=== PATIENT | female | born 1950 | race Caucasian/White ===

== ENCOUNTER 2016-09-26 08:55 | Inpatient (IN) | payer MEDICAID ==
--- NOTE | 2016-09-26 09:33 | ED PDOC ---
Arrival/HPI - History of Present Illness Activities at Onset: Rest Context: Home <Magdaleno Madrid - Last Filed: 09/26/16 09:30> - General Historian: Patient, Family (Translated by son) - History of Present Illness Time/Duration: 1 hour Symptom Onset: Gradual Symptom Course: Unchanged Activities at Onset: Rest Context: Home <Rachel Carroll - Last Filed: 09/26/16 09:45> - General Chief Complaint: Trauma Time Seen by Provider: 09/26/16 09:10 - History of Present Illness Narrative History of Present Illness (Text): 09/26/16 09:36 A 66 year old female, whose past medical history includes hypertension and diabetes mellitus, presents to the emergency department with son for translation , for left sided chest pain with palpitations and chest pressure, which began 1 hour ago. The patient reports at 05:30 am this morning while sleeping she fell off the bed and hit her head. The patient notes she had a mild headache and left shoulder pain due to fall. Currently, she has chest pain, palpations, and chest pressure. She denies any similar symptoms in the past along with fevers, shortness of breath, wheezing, abdominal pain, urinary difficulties, or any other symptoms at this time. Recently she has been tested with a nuclear stress test and echocardiogram preformed by Dr. Leos. 09/26/16 09:42 (Rachel Carroll) Past Medical History - Cardiac Hx Angina: (chest pain) - Pulmonary Hx Asthma: (SOB) - Neurological Hx Neurological Disorder: No - HEENT Hx HEENT Disorder: No - Renal Hx Renal Disorder: No - Endocrine/Metabolic Hx Endocrine Disorders: Yes Hx Diabetes Mellitus Type 2: Yes - Hematological/Oncological Hx Blood Disorders: No - Integumentary Hx Dermatological Disorder: No Hx Basal Cell Carcinoma: No - Musculoskeletal/Rheumatological Hx Musculoskeletal Disorders: No - Gastrointestinal Hx Gastrointestinal Disorders: No - Genitourinary/Gynecological Hx Genitourinary Disorders: No - Psychiatric Hx Psychophysiologic Disorder: Yes Hx Depression: Yes Hx Substance Use: No - Surgical History Hx Appendectomy: Yes Hx Section: Yes Hx Cholecystectomy: Yes - Anesthesia Hx Anesthesia: Yes Hx Anesthesia Reactions: No Hx Malignant Hyperthermia: No <Magdaleno Madrid - Last Filed: 09/26/16 09:30> - Provider Review Nursing Documentation Reviewed: Yes <Rachel Carroll P - Last Filed: 09/26/16 09:45> Family/Social History Smoking Status: Never Smoked Hx Alcohol Use: No Hx Substance Use: No <Magdaleno Madrid - Last Filed: 09/26/16 09:30> - Physician Review Nursing Documentation Reviewed: Yes Family/Social History: No Known Family HX, Unknown Family HX <Rachel Carroll P - Last Filed: 09/26/16 09:45> Allergies/Home Meds <Magdaleno Madrid - Last Filed: 09/26/16 09:30> <Rachel Carroll P - Last Filed: 09/26/16 09:45> Allergies/Adverse Reactions: Allergies No Known Allergies Allergy (Verified 09/26/16 09:03) Home Medications: Home Meds Medication Instructions Recorded Confirmed Alogliptin Lasha/Metformin HCl 1 each PO DAILY 08/23/16 09/26/16 [Alogliptin-Metformin 12.5-500] Aspirin [Aspirin Chewable] 81 mg PO DAILY 08/23/16 09/26/16 Atenolol [Tenormin] 25 mg PO DAILY 08/23/16 09/26/16 Enalapril Maleate [Vasotec] 1 tab PO DAILY 08/23/16 09/26/16 Gabapentin [Neurontin] 600 mg PO TID 08/23/16 09/26/16 GlipiZIDE [Glucotrol] 5 mg PO DAILY 09/26/16 09/26/16 Review of Systems - Physician Review All systems were reviewed & negative as marked: Yes - Review of Systems Constitutional: absent: Fevers Respiratory: absent: SOB, Wheezing Cardiovascular: Chest Pain, Palpitations Gastrointestinal: absent: Abdominal Pain Genitourinary Female: Normal. absent: Dysuria, Frequency, Hematuria, Urine Output Changes Musculoskeletal: Other (Left arm pain ) Neurological: Headache (mild ) <Rachel Carroll - Last Filed: 09/26/16 09:45> Physical Exam Vital Signs Reviewed: Yes Temperature: Afebrile Blood Pressure: Normal Pulse: Regular Respiratory Rate: Normal Appearance: Positive for: Well-Appearing, Non-Toxic, Comfortable Pain Distress: None Mental Status: Positive for: Alert and Oriented X 3 - Systems Exam Head: Present: Atraumatic, Normocephalic Pupils: Present: PERRL Mouth: Present: Moist Mucous Membranes Neck: Present: Normal Range of Motion Respiratory/Chest: Present: Clear to Auscultation, Good Air Exchange, Tender to Palpation (Left anterior chest is reproducible upon palpation ). No: Respiratory Distress, Accessory Muscle Use, Wheezes Cardiovascular: Present: Regular Rate and Rhythm, Normal S1, S2. No: Murmurs Abdomen: Present: Normal Bowel Sounds. No: Tenderness, Distention, Peritoneal Signs Back: Present: Normal Inspection Upper Extremity: Present: Normal Inspection. No: Cyanosis, Edema Lower Extremity: Present: Normal Inspection. No: Edema Neurological: Present: GCS=15, Speech Normal Skin: Present: Warm, Dry, Normal Color. No: Rashes Psychiatric: Present: Alert, Oriented x 3, Normal Insight, Normal Concentration <Rachel Carroll - Last Filed: 09/26/16 09:45> Vital Signs Temp Pulse Resp BP Pulse Ox 09/26/16 08:58 97.7 F 78 20 127/72 96 <Magdaleno Madrid - Last Filed: 09/26/16 09:30> - PA / SUPERVISOR STATEMENT CLERKS / Resident Statement MD/DO has reviewed & agrees with the documentation as recorded. - Scribe Statement The provider has reviewed the documentation as recorded by the Scribe <Rachel Carroll - Last Filed: 09/26/16 09:45> - Scribe Statement Asuncion Dorman Provider Scribe Attestation: All medical record entries made by the Scribe were at my direction and personally dictated by me. I have reviewed the chart and agree that the record accurately reflects my personal performance of the history, physical exam, medical decision making, and the department course for this patient. I have also personally directed, reviewed, and agree with the discharge instructions and disposition. (Rachel Carroll) Disposition/Present on Arrival - Present on Arrival History of DVT/PE: No History of Uncontrolled Diabetes: No Urinary Catheter: No History of Decub. Ulcer: No History Surgical Site Infection Following: None <Magdaleno Madrid - Last Filed: 09/26/16 09:30> <Rachel Carroll - Last Filed: 09/26/16 09:45> - Disposition Forms: [employer] (Armenian)
--- NOTE | 2016-09-26 09:51 | ED PDOC ---
Arrival/HPI - General Historian: Patient, Family (Translated by son) - History of Present Illness Time/Duration: 1 hour Symptom Onset: Gradual Symptom Course: Unchanged Activities at Onset: Rest Context: Home - General Chief Complaint: Trauma Time Seen by Provider: 09/26/16 09:10 - History of Present Illness Narrative History of Present Illness (Text): 09/26/16 09:36 A 66 year old female, whose past medical history includes hypertension and diabetes mellitus, presents to the emergency department with son for translation , for left sided chest pain with palpitations and chest pressure, which began 1 hour ago. The patient reports at 05:30 am this morning while sleeping she fell off the bed and hit her head. The patient notes she had a mild headache and left shoulder pain due to fall. Currently, she has chest pain, palpitations, and chest pressure. She denies any similar symptoms in the past along with fevers, shortness of breath, wheezing, abdominal pain, urinary difficulties, or any other symptoms at this time. Recently she has been tested with a nuclear stress test and echocardiogram preformed by Dr. Sanchez last month. PATIENT STATED SHE TOOK A "BABY ASA, 81MG" THIS MORNING (Carroll,Nahim P) Past Medical History - Provider Review Nursing Documentation Reviewed: Yes - Cardiac Hx Angina: (chest pain) - Pulmonary Hx Asthma: (SOB) - Neurological Hx Neurological Disorder: No - HEENT Hx HEENT Disorder: No - Renal Hx Renal Disorder: No - Endocrine/Metabolic Hx Endocrine Disorders: Yes Hx Diabetes Mellitus Type 2: Yes - Hematological/Oncological Hx Blood Disorders: No - Integumentary Hx Dermatological Disorder: No Hx Basal Cell Carcinoma: No - Musculoskeletal/Rheumatological Hx Musculoskeletal Disorders: No - Gastrointestinal Hx Gastrointestinal Disorders: No - Genitourinary/Gynecological Hx Genitourinary Disorders: No - Psychiatric Hx Psychophysiologic Disorder: Yes Hx Depression: Yes Hx Substance Use: No - Surgical History Hx Appendectomy: Yes Hx Section: Yes Hx Cholecystectomy: Yes - Anesthesia Hx Anesthesia: Yes Hx Anesthesia Reactions: No Hx Malignant Hyperthermia: No Family/Social History - Physician Review Nursing Documentation Reviewed: Yes Family/Social History: No Known Family HX, Unknown Family HX Smoking Status: Never Smoked Hx Alcohol Use: No Hx Substance Use: No Allergies/Home Meds Allergies/Adverse Reactions: Allergies No Known Allergies Allergy (Verified 09/26/16 09:03) Home Medications: Home Meds Medication Instructions Recorded Confirmed Alogliptin Lasha/Metformin HCl 1 each PO DAILY 08/23/16 09/27/16 [Alogliptin-Metformin 12.5-500] Aspirin [Aspirin Chewable] 81 mg PO DAILY 08/23/16 09/27/16 Enalapril Maleate [Vasotec] 1 tab PO DAILY 08/23/16 09/27/16 Gabapentin [Neurontin] 600 mg PO TID 08/23/16 09/27/16 GlipiZIDE [Glucotrol] 5 mg PO DAILY 09/26/16 09/27/16 Review of Systems - Physician Review All systems were reviewed & negative as marked: Yes - Review of Systems Constitutional: absent: Fevers Respiratory: absent: SOB, Wheezing Cardiovascular: Chest Pain, Palpitations Gastrointestinal: absent: Abdominal Pain Genitourinary Female: Normal. absent: Dysuria, Frequency, Hematuria, Urine Output Changes Neurological: Headache (mild) Physical Exam Vital Signs Reviewed: Yes Temperature: Afebrile Blood Pressure: Normal Pulse: Regular Respiratory Rate: Normal Appearance: Positive for: Well-Appearing, Non-Toxic, Comfortable Pain Distress: None Mental Status: Positive for: Alert and Oriented X 3 - Systems Exam Head: Present: Atraumatic, Normocephalic Pupils: Present: PERRL Mouth: Present: Moist Mucous Membranes Neck: Present: Normal Range of Motion Respiratory/Chest: Present: Clear to Auscultation, Good Air Exchange, Tender to Palpation (Left antieror chest pain is reproducible on palpation ). No: Respiratory Distress, Accessory Muscle Use Cardiovascular: Present: Regular Rate and Rhythm, Normal S1, S2. No: Murmurs Abdomen: Present: Normal Bowel Sounds. No: Tenderness, Distention, Peritoneal Signs Upper Extremity: Present: Normal Inspection. No: Cyanosis, Edema Lower Extremity: Present: Normal Inspection. No: Edema Neurological: Present: GCS=15, Speech Normal Skin: Present: Warm, Dry, Normal Color. No: Rashes Psychiatric: Present: Alert, Oriented x 3, Normal Insight, Normal Concentration Vital Signs Temp Pulse Resp BP Pulse Ox 09/26/16 11:44 113 H 17 118/57 L 97 09/26/16 11:03 97 H 18 121/75 97 09/26/16 10:53 108 H 17 123/80 97 09/26/16 08:58 97.7 F 78 20 127/72 96 Medical Decision Making Reassessment Condition: Re-examined, Improving,but remains with symptoms - EKG Interpretation Interpreted by ED Physician: Yes (A-Fib @[address] changes. Reviewed with Dr. Patel) Type: 12 lead EKG Comparison: No previous EKG avail. ED Course and Treatment: 09/26/16 10:17 I was available for consultation during PA evaluation. The chart was reviewed by me, and I agree with disposition. The documented history was done by the physician aquatic life laborer. The documented physical exam was done by the physician aquatic life laborer. The documented procedures were done by the physician aquatic life laborer. (Magdaleno Madrid) 09/26/16 09:36 Impression: A 66 year old female with chest pain. Differential Diagnosis included but are not limited to: Plan: -- Head CT -- EKG -- Chest X-Ray -- Labs -- Urinalysis -- Reassess and disposition Prior Visits: Notes and results from previous visits were reviewed. The patient was last seen on 03/04/15 for lower back pain and was discharged home. Progress Notes: 09/26/16 09:53 Dr. Rodriguez Hospitalist agrees with plan for admission Chest X-Ray Slot Host : Donny Nickerson MD Report Date : 09/26/2016 11:16:39 HISTORY: CP COMPARISON:No prior. FINDINGS: OTHER FINDINGS: None. IMPRESSION: Mild vascular congestion. NEW ONSET A-FIB (Carroll,Nahim P) - Lab Interpretations Lab Results: 09/26/16 09:58 09/26/16 09:58 Lab Results 09/26/16 10:09: Urine Color Straw, Urine Appearance Clear, Urine pH 6.5, Ur Specific [place] <= 1.005, Urine Protein Negative, Urine Glucose (UA) Negative, Urine Ketones Negative, Urine Blood Negative, Urine Nitrate Negative, Urine Bilirubin Negative, Urine Urobilinogen 0.2, Ur Leukocyte Esterase Negative 09/26/16 09:58: Sodium 141, Potassium 3.9, Chloride 104, Carbon Dioxide 27, Anion Gap 14, BUN 15, Creatinine 0.6, Est GFR ( Amer) > 60, Est GFR (Non- Af Amer) > 60, Random Glucose 158 H, Calcium 8.9, Magnesium 1.7, Total Bilirubin 0.5, AST 40 H, ALT 51, Alkaline Phosphatase 57, Lactate Dehydrogenase 461, Total Creatine Kinase 86, Troponin I < 0.01, NT-Pro-B Natriuret Pep 172, Total Protein 7.5, Albumin 3.8, Globulin 3.7, Albumin/Globulin Ratio 1.0 L 09/26/16 09:58: D-Dimer, Quantitative 0.47 09/26/16 09:58: WBC 8.1, RBC 4.66, Hgb 13.0, Hct 39.3, MCV 84.3, MCH 27.9, MCHC 33.1, RDW 14.3, Plt Count 226, MPV 10.9, Gran % 50.5, Lymph % (Auto) 38.7 H, [place] % (Auto) 9.1 H, Eos % (Auto) 1.5, Baso % (Auto) 0.2, Gran # 4.07, Lymph # 3.1, [place] # 0.7 H, Eos # 0.1, Baso # 0.02 - RAD Interpretation Narrative RAD Interpretations (Text): 09/26/16 10:39 Accession No. : [id number] Patient Name / ID : RANCHO VAUGHN NOLA / [id number] Exam Date : 09/26/2016 10:06:38 ( Approved ) Study Comment : Sex / Age : F / 66Y Creator : Donny Nickerson MD Dictator : Donny Nickerson MD Body Care Manager : Slot Host : Donny Nickerson MD Approver2 : Report Date : 09/26/2016 10:38:51 My Comment : This report is currently processing and HAS NOT BEEN OFFICIALLY SIGNED BY THE PHYSICIAN - ESTIMATED TIME OF APPROVAL IS 09/26/2016 10:43. PROCEDURE: CT HEAD WITHOUT CONTRAST. HISTORY: ZAMUDIO s/p head trauma COMPARISON: None available. TECHNIQUE: Axial computed tomography images were obtained through the head/brain without intravenous contrast. Radiation dose: Total exam DLP = 677 mGy-cm. This CT exam was performed using one or more of the following dose reduction techniques: Automated exposure control, adjustment of the mA and/or kV according to patient size, and/or use of iterative reconstruction technique. FINDINGS: HEMORRHAGE: No intracranial hemorrhage. BRAIN: No mass effect or edema. No atrophy or chronic microvascular ischemic changes. VENTRICLES: Unremarkable. No hydrocephalus. CALVARIUM: Unremarkable. PARANASAL SINUSES: Unremarkable as visualized. No significant inflammatory changes. MASTOID AIR CELLS: Unremarkable as visualized. No inflammatory changes. OTHER FINDINGS: None. IMPRESSION: No acute intracranial findings (Rachel Carroll) Radiology Orders: 09/26/16 09:34 HEAD W/O CONTRAST [CT] Stat CHEST PORTABLE [RAD] Stat - Medication Orders Current Medication Orders: Discontinued Medications Aspirin (Aspirin Chewable) 81 mg PO DAILY [facility] Last Admin: 09/27/16 09:51 Dose: Aspirin (Aspirin) 325 mg PO DAILY STA Stop: 09/27/16 09:13 Last Admin: 09/27/16 09:50 Dose: 325 mg Atenolol (Tenormin) 25 mg PO DAILY BRUNILDA Atenolol (Tenormin) 50 mg PO DAILY [facility] Last Admin: 09/27/16 09:50 Dose: 50 mg Atropine Sulfate (Atropine) Confirm Administered Dose 1 mg .ROUTE .STK-MED ONE Stop: 09/27/16 12:16 Last Admin: 09/27/16 15:40 Dose: Bacitracin (Bacitracin) 1 ea TOP ONCE ONE Stop: 09/27/16 13:26 Last Admin: 09/27/16 15:46 Dose: 1 ea Clopidogrel Bisulfate (Plavix) 300 mg PO STAT STA Stop: 09/27/16 09:13 Last Admin: 09/27/16 09:51 Dose: 300 mg Diltiazem HCl (Cardizem) 5 mg IVP ONCE ONE Stop: 09/26/16 12:51 Last Admin: 09/26/16 13:32 Dose: 5 mg Enoxaparin Sodium (Lovenox) 105 mg SC STAT STA PRN Reason: Protocol Stop: 09/26/16 11:18 Last Admin: 09/26/16 11:29 Dose: 105 mg Fentanyl (Fentanyl) Confirm Administered Dose 100 mcg .ROUTE .STK-MED ONE Stop: 09/27/16 12:23 Last Admin: 09/27/16 12:44 Dose: 100 mcg Comments: 50mcgs iv by dr. teresa 50mcgs iv by esther matos RN at 1251 Gabapentin (Neurontin) 600 mg PO TID [facility] PRN Reason: Protocol Last Admin: 09/27/16 18:12 Dose: 600 mg Glipizide (Glucotrol) 5 mg PO DAILY [facility] Last Admin: 09/27/16 09:51 Dose: Not Given Non-Admin Reason: NPO Heparin Sodium (Porcine) (Heparin) Confirm Administered Dose 10,000 units .ROUTE .STK-MED ONE Stop: 09/27/16 12:14 Last Admin: 09/27/16 12:49 Dose: 2,500 units Comments: ia by dr teresa Heparin Sodium (Porcine) (Heparin 1000 Units/500 Ml Ns) Confirm Administered Dose 1,500 mls @ ud IV .STK-MED ONE Stop: 09/27/16 12:12 Nitroglycerin/Dextrose (Nitroglycerin 50 Mg/250 Ml D5w) Confirm Administered Dose 50 mg in 250 mls @ ud IV .STK-MED ONE Stop: 09/27/16 12:14 Last Admin: 09/27/16 12:49 Dose: 0.2 mg Comments: 200mcgs given ia by dr teresa Sodium Chloride (Sodium Chloride 0.9%) 1,000 mls @ 100 mls/hr IV .Q10H [facility] Stop: 09/27/16 17:00 Last Admin: 09/27/16 14:10 Dose: 100 mls/hr Ibuprofen (Motrin Tab) 600 mg PO Q6H PRN PRN Reason: Pain, Mild (1-3) Last Admin: 09/27/16 15:58 Dose: 600 mg Re-Assess: MAR Pain/Vitals Document 09/27/16 16:58 RT (Rec: 09/27/16 18:08 RT [id number]) Pain Reassessment Is This A Pain ReAssessment? Yes Presence of Pain Presence of Pain No Insulin Human Lispro (Humalog Med) 0 units SC ACHS [facility] PRN Reason: Protocol Last Admin: 09/27/16 16:50 Dose: 3 units Iohexol (Omnipaque 350mg/Ml 50 Ml) Confirm Administered Dose 50 ml .ROUTE .STK- MED ONE Stop: 09/27/16 12:15 Iohexol (Omnipaque 350 100 Ml) Confirm Administered Dose 350 mg .ROUTE .STK-MED ONE Stop: 09/27/16 12:15 Iohexol (Omnipaque 350 150 Ml) Confirm Administered Dose 150 ml .ROUTE .STK-MED ONE Stop: 09/27/16 12:15 Lidocaine HCl (Lidocaine 2% 20ml Vial) Confirm Administered Dose 20 ml .ROUTE .STK-MED ONE Stop: 09/27/16 12:12 Last Admin: 09/27/16 12:48 Dose: 3 ml Lisinopril (Zestril) 10 mg PO DAILY [facility] Last Admin: 09/27/16 09:49 Dose: 10 mg Midazolam HCl (Versed Inj) Confirm Administered Dose 2 mg .ROUTE .STK-MED ONE Stop: 09/27/16 12:22 Last Admin: 09/27/16 12:44 Dose: 2 mg Comments: 1mg given by dr teresa 1244pm 1mg given by 1251pm by esther Matos RN. Pantoprazole Sodium (Protonix Ec Tab) 40 mg PO 0600 [facility] Last Admin: 09/27/16 04:59 Dose: 40 mg Verapamil HCl (Verapamil Inj) Confirm Administered Dose 5 mg IVP .STK-MED ONE Stop: 09/27/16 12:14 Last Admin: 09/27/16 12:49 Dose: 2.5 mg Comments: ia by dr teresa. - Scribe Statement The provider has reviewed the documentation as recorded by the Scribe - Scribe Statement Asuncion Dorman Provider Scribe Attestation: All medical record entries made by the Scribe were at my direction and personally dictated by me. I have reviewed the chart and agree that the record accurately reflects my personal performance of the history, physical exam, medical decision making, and the department course for this patient. I have also personally directed, reviewed, and agree with the discharge instructions and disposition. (Rachel Carroll) Disposition/Present on Arrival - Present on Arrival Any Indicators Present on Arrival: No History of DVT/PE: No History of Uncontrolled Diabetes: No Urinary Catheter: No History of Decub. Ulcer: No History Surgical Site Infection Following: None - Disposition Have Diagnosis and Disposition been Completed?: Yes Disposition Time: 11:16 Patient Plan: Admission - Disposition Diagnosis: New onset atrial fibrillation Disposition: HOSPITALIZED Condition: STABLE
[2016-09-26 10:02] LABS: BASO # 0.02 K/mm3 (0.0-2.0); BASO % 0.2 % (0.0-3.0); EOS # 0.1 (0.0-0.7); EOS % 1.5 % (1.5-5.0); GRAN # 4.07 (1.4-6.5); GRAN % 50.5 % (50.0-68.0); LYMPH # 3.1 (1.2-3.4); LYMPH % 38.7 % (22.0-35.0); MEAN CELL VOLUME 84.3 fL (80.0-105.0); MEAN CORPUSCULAR HEMOGLOBIN 27.9 pg (25.0-35.0); MEAN CORPUSCULAR HGB CONC 33.1 g/dl (31.0-37.0); MEAN PLATELET VOLUME 10.9 fl (7.0-11.0); MONO # 0.7 (0.1-0.6); MONO % 9.1 % (1.0-6.0); PLATELET COUNT 226 10^3/uL (120.0-450.0); RBC 4.66 10^6/uL (3.5-6.1); RED CELL DISTRIBUTION WIDTH 14.3 % (11.5-14.5); WHITE BLOOD COUNT 8.1 10^3/ul (4.5-11.0)
[2016-09-26 10:13] LABS: ALBUMIN 3.8 g/dL (3.0-4.8); ALT/SGPT 51 U/L (7-56); AST/SGOT 40 U/L (15-39); BLOOD UREA NITROGEN 15 mg/dL (7-21); CALCIUM 8.9 mg/dL (8.4-10.5); GFR AFRICAN-AMERICAN > 60; GFR NON-AFRICAN AMERICAN > 60; MAGNESIUM 1.7 mg/dL (1.7-2.2)
[2016-09-26 10:17] LABS: PH,URINE 6.5 (4.7-8.0); URINE BILIRUBIN NEGATIVE (NEGATIVE); URINE BLOOD NEGATIVE (NEGATIVE); URINE GLUCOSE (UA) NEGATIVE (NEGATIVE); URINE LEUKOCYTE ESTERASE NEGATIVE Leu/uL (NEGATIVE); URINE NITRATE NEGATIVE (NEGATIVE); URINE PROTEIN NEGATIVE mg/dL (<30 mg/dL); URINE UROBILINOGEN 0.2 E.U./dL (<1 E.U./dL)
[2016-09-26 10:21] LABS: URINE APPEARANCE CLEAR (CLEAR); URINE COLOR STRAW (YELLOW)
[2016-09-26 10:25] LABS: B-TYPE NATRIURETIC PEPTIDE 172 pg/mL (0-450); TROPONIN I < 0.01 ng/mL
--- NOTE | 2016-09-26 10:40 | CT ---
PROCEDURE: CT HEAD WITHOUT CONTRAST. HISTORY: ZAMUDIO s/p head trauma COMPARISON: None available. TECHNIQUE: Axial computed tomography images were obtained through the head/brain without intravenous contrast. Radiation dose: Total exam DLP = 677 mGy-cm. This CT exam was performed using one or more of the following dose reduction techniques: Automated exposure control, adjustment of the mA and/or kV according to patient size, and/or use of iterative reconstruction technique. FINDINGS: HEMORRHAGE: No intracranial hemorrhage. BRAIN: No mass effect or edema. No atrophy or chronic microvascular ischemic changes. VENTRICLES: Unremarkable. No hydrocephalus. CALVARIUM: Unremarkable. PARANASAL SINUSES: Unremarkable as visualized. No significant inflammatory changes. MASTOID AIR CELLS: Unremarkable as visualized. No inflammatory changes. OTHER FINDINGS: None. IMPRESSION: No acute intracranial findings
[2016-09-26] MEDS ORDERED: Enoxaparin 120 mg Syringe SC STA (11:17)
--- NOTE | 2016-09-26 11:18 | RAD ---
HISTORY: CP COMPARISON: No prior. FINDINGS: LUNGS: No active pulmonary disease. PLEURA: No significant pleural effusion identified, no pneumothorax apparent. CARDIOVASCULAR: Mild cardiomegaly. Mild vascular congestion OSSEOUS STRUCTURES: No significant abnormalities. VISUALIZED UPPER ABDOMEN: Normal. OTHER FINDINGS: None. IMPRESSION: Mild vascular congestion.
[2016-09-26 11:24] VITALS: BMI 45.5
--- NOTE | 2016-09-26 12:13 | CP.PCM.HP ---
<Stormy Smith - Last Filed: 09/26/16 13:29> History of Present Illness - History of Present Illness History of Present Illness: 66 yo female with pmhx of Diabetes, HTN, GERD presents to the ED s/p fall. Patient reports that she was sleeping in the bed when she rolled over and hit her head on the night stand. Denies any LOC. Had a similar episode happen last year but did not hit her head. Patient reports that an hour after the fall she began to have substernal pressure-like chest pain. Pain radiated to the back and was associated with palpitations. Worse with breathing. At this time patient denies pain but reports that the chest pressure is intermittent and is less severe currently. Denies any headache, dizziness, visual changes, hearing changes, chest pain, palpitations, sob, abdominal pain, urinary symptoms, changes in bowel habits. PMD: [employer] Attendant: Laura Allergies: NKDA Medications: Montelukast, Gabapentin 600 TID, Vitamin B12, Vitamin D, Loratadine 10mg daily, Glipizide 5mg BID, Enalapril 10mg QD, Protonix 40mg daily , Atenolol 50mg, Januvia 12.5/500mg BID Medical Hx: Diabetes, HTN, peripheral neuropathy, GERD Surgical Hx: Appendectomy, Cholecystectomy, C/S x 2 Social Hx: Denies alcohol, tobacco, drug use; 3 years ago Family Hx: Brother of [place] at age 35 Present on Admission - Present on Admission Any Indicators Present on Admission: No History of DVT/PE: No History of Uncontrolled Diabetes: No Urinary Catheter: No Decubitus Ulcer Present: No Review of Systems - Constitutional Constitutional: absent: Chills, Fatigue, Fever, Headache - EENT Eyes: absent: Blurred Vision Ears: absent: Decreased Hearing - Cardiovascular Cardiovascular: Chest Pain, Irregular Heart Rhythm, Palpitations. absent: Diaphoresis, Dyspnea, Edema, Lightheadedness, Syncope - Respiratory Respiratory: absent: Cough, Dyspnea, Wheezing - Gastrointestinal Gastrointestinal: absent: Abdominal Pain, Bloating, Constipation, Diarrhea, Nausea, Vomiting - Genitourinary Genitourinary: absent: Dysuria, Urinary Frequency - Musculoskeletal Musculoskeletal: absent: Abnormal Gait, Back Pain, Numbness, Tingling - Neurological Neurological: absent: Confusion, Dizziness, Frequent Falls, Headaches, Loss of Vision, Syncope, Tingling, Weakness - Psychiatric Psychiatric: absent: Anxiety, Behavioral Changes, Change in Appetite, Confusion , Depression Past Patient History - Infectious Disease Hx of Infectious Diseases: None - Tetanus Immunizations Tetanus Immunization: Unknown - Past Medical History & Family History Past Medical History?: Yes - Past Social History Smoking Status: Never Smoked Alcohol: None Drugs: Denies - CARDIAC Hx Angina: (chest pain) - PULMONARY Hx Asthma: (SOB) - NEUROLOGICAL Hx Neurological Disorder: No - HEENT Hx HEENT Problems: No - RENAL Hx Chronic Kidney Disease: No - ENDOCRINE/METABOLIC Hx Endocrine Disorders: Yes Hx Diabetes Mellitus Type 2: Yes - HEMATOLOGICAL/ONCOLOGICAL Hx Blood Disorders: No - INTEGUMENTARY Hx Dermatological Problems: No Hx Basil Cell: No - MUSCULOSKELETAL/RHEUMATOLOGICAL Hx Musculoskeletal Disorders: No - GASTROINTESTINAL Hx Gastrointestinal Disorders: No - GENITOURINARY/GYNECOLOGICAL Hx Genitourinary Disorders: No - PSYCHIATRIC Hx Psychophysiologic Disorder: Yes Hx Depression: Yes Hx Substance Use: No - SURGICAL HISTORY Hx Appendectomy: Yes Hx Section: Yes Hx Cholecystectomy: Yes - ANESTHESIA Hx Anesthesia: Yes Hx Anesthesia Reactions: No Hx Malignant Hyperthermia: No Meds Allergies/Adverse Reactions: Allergies Allergy/AdvReac Type Severity Reaction Status Date / Time No Known Allergies Allergy Verified 09/26/16 09:03 Physical Exam - Constitutional Appears: Well, No Acute Distress - Head Exam Head Exam: ATRAUMATIC, NORMAL INSPECTION Additional comments: Small bruise noted on L side of forehead - Eye Exam Eye Exam: EOMI, Normal appearance Pupil Exam: NORMAL ACCOMODATION - ENT Exam ENT Exam: Mucous Membranes Moist - Neck Exam Neck exam: Positive for: Normal Inspection - Respiratory Exam Respiratory Exam: Clear to Auscultation Bilateral, NORMAL BREATHING PATTERN. absent: Rales, Rhonchi, Wheezes - Cardiovascular Exam Cardiovascular Exam: Irregular Rhythm - GI/Abdominal Exam GI & Abdominal Exam: Normal Bowel Sounds, Soft. absent: Guarding, Rebound, Rigid - Extremities Exam Extremities exam: Positive for: normal inspection, pedal pulses present. Negative for: calf tenderness, pedal edema - Back Exam Back exam: NORMAL INSPECTION - Neurological Exam Neurological exam: Alert, CN II-XII Intact, Oriented x3 - Psychiatric Exam Psychiatric exam: Normal Affect, Normal Mood - Skin Skin Exam: Dry, Normal Color, Warm Results - Vital Signs Recent Vital Signs: Last Vital Signs Temp 97.7 F 09/26/16 08:58 Pulse 113 H 09/26/16 11:44 Resp 17 09/26/16 11:44 BP 118/57 L 09/26/16 11:44 Pulse Ox 97 09/26/16 11:44 - Labs Result Diagrams: 09/26/16 09:58 09/26/16 09:58 Assessment & Plan - Assessment and Plan (Free Text) Assessment: 66 F with past medical hx of HTN, DM, peripheral neuropathy, GERD presents s/p fall with chest pain Plan: 1. New onset A fib -Admit, observation, telemetry -EKG in ED Afib with rate of 118 -Recieved one dose of weight based Lovenox in ED -Will order Cardizem 5mg IV STAT, goal HR 80-90s -Trop neg x 1, continue to trend troponins -EKG in am -Echo ordered -Cardiology on consult, f/u recommendations -Continue ASA 81 daily -[id number] score: 3 HASBLED score: 1 -Continue Lovenox 100mg Q12H -Continue Atenolol 25mg daily -F/U am labs 2. S/P Mechanical Fall -CT head: no acute findings 3. HTN -Continue Atenolol 25mg daily -Continue Enapril 10mg daily -Monitor BPs 4. Diabetes Mellitus, Type 2 -Will hold metoformin at this time -Contine Glipizide -Medium dose ISS and accuchecks ACHS -F/U hgA1c -Continue Gabapentin 600mg TID for peripheral neuropathy 5. PPx -Protonix 40mg PO daily -Lovenox 100mg Q12H Stormy Smith, PGY -1 <Macho Rodriguez - Last Filed: 09/26/16 17:55> Results - Vital Signs Recent Vital Signs: Last Vital Signs Temp 98.0 F 09/26/16 16:18 Pulse 120 H 09/26/16 16:18 Resp 19 09/26/16 16:18 BP 140/80 09/26/16 16:18 Pulse Ox 99 09/26/16 12:00 - Labs Result Diagrams: 09/26/16 09:58 09/26/16 09:58 Labs: Laboratory Results - last 24 hr 08/06/17 08/06/17 08/06/17 12:26 15:50 16:15 POC Glucose (mg/dL) 160 H 189 H Troponin I < 0.01 Attending/Attestation - Attestation I have personally seen and examined this patient.: Yes I have fully participated in the care of the patient.: Yes I have reviewed all pertinent clinical information: Yes Notes (Text): 09/26/16 17:51 attending note; Patient seen and examined with resident. Patient's son by the bedside. Patient is alert, awake and oriented. Denies any complaints. Patient is a 66 year old female with the PMH of Diabetes, HTN, GERD presents to the ED s/p fall. Patient reports that she was sleeping in the bed when she rolled over and hit her head on the night stand. CT head is negative. The patient started to have chest pain and palpitations. ER EKG showed irregular rhythm. Given sc lovenox in ER. atenolol dosage increased. Continue to monitor in telemetry. Cardiac enzymes 3 ordered. Echocardiogram ordered. Cardiology evaluation requested. cardiology to advice about the need for long- term anticoagulation. diabetes and hypertension; continue home medications. upon discharge the patient will follow-up with PMD Dr. Ortega and cardiology Dr. Sanchez. 09/26/16 17:54
[2016-09-26] MEDS ORDERED: ENALAPRIL MALEATE PO SCH (13:00)
[2016-09-26] MEDS: Insulin Lispro (humaLOG) MEDIUM Coverage SC SCH (17:02)
--- NOTE | 2016-09-26 22:04 | CON ---
REASON FOR CONSULTATION: Presumably atrial fibrillation. HISTORY OF PRESENT ILLNESS: The patient is 66 years old [place] female with history of hypertension and diabetes mellitus. The patient underwent Lexiscan on 04/27/2016, which was reported to be essentially negative except for breast attenuation and the patient was admitted because of fall while asleep. The patient stated that she fell from bed while she was asleep, which was not the first time it has happened to her. She sustained right eyebrow bruise. The patient wake up immediately after she sustained the fall. She did experienced headache. EKG was read as atrial fibrillation; however, my own interpretation was sinus rhythm with frequent apices or possibly chaotic atrial risk. The patient does not currently experiencing palpitations. SOCIAL HISTORY: The patient is nonsmoker and nondrinker. MEDICATIONS: The patient is on aspirin 81 mg once a day, glipizide 5 mg once a day, Neurontin 600 mg t.i.d., atenolol 25 mg daily. REVIEW OF SYSTEMS: No fever or chills. No vomiting or diarrhea. PHYSICAL EXAMINATION GENERAL: The patient is a middle aged female who does not appear to be in any distress. VITAL SIGNS: Blood pressure 118/57, heart rate 115, temperature 97.7 and respirations 17. HEENT: Left upper eye bruising. NECK: No JVD. CHEST: Clear. HEART: S1 and S2 regular. EXTREMITIES: No edema or calf tenderness. LABORATORY DATA: Hemoglobin, hematocrit, white count and platelet count are within normal limits. SMA-7 is within normal limits except for glucose of 158. One set of troponin is negative. D-dimer was within normal limits. EKG revealed sinus arrhythmia with frequent apices, heart rate is 118. There is no prior EKG noted in the patient's previous admission. ASSESSMENT: 1. Status post fall. 2. Sinus tachycardia with frequent atrial ectopy. 3. Uncontrolled diabetes mellitus. 4. . CONDITIONS: Increase atenolol to 50 mg once a day, continue enalapril 5 mg once a day, mg once a day. Obtain an echocardiogram and TSH level. Spenser Walters MD
[2016-09-26] MEDS ORDERED: Enoxaparin 100 mg Syringe SC SCH (23:00)
[2016-09-27] MEDS: Insulin Lispro (humaLOG) MEDIUM Coverage SC SCH ×4 (00:45→16:50)
[2016-09-27] MEDS ORDERED: Pantoprazole 40 mg EC Tab PO SCH (06:00)
[2016-09-27 06:54] VITALS: O2SAT 96
[2016-09-27 07:42] LABS: BASO # 0.02 K/mm3 (0.0-2.0); BASO % 0.3 % (0.0-3.0); EOS # 0.1 (0.0-0.7); EOS % 2.4 % (1.5-5.0); GRAN # 2.99 (1.4-6.5); GRAN % 50.4 % (50.0-68.0); HEMOGLOBIN 12.4 gm/dL (12.0-16.0); LYMPH # 2.3 (1.2-3.4); MEAN CORPUSCULAR HEMOGLOBIN 27.3 pg (25.0-35.0); MEAN CORPUSCULAR HGB CONC 32.5 g/dl (31.0-37.0); MONO # 0.5 (0.1-0.6); MONO % 8.9 % (1.0-6.0); PLATELET COUNT 206 10^3/uL (120.0-450.0); RBC 4.55 10^6/uL (3.5-6.1); RED CELL DISTRIBUTION WIDTH 14.3 % (11.5-14.5); WHITE BLOOD COUNT 5.9 10^3/ul (4.5-11.0)
[2016-09-27 07:54] LABS: ALB/GLOB RATIO 1.1 (1.1-1.8); ALBUMIN 3.7 g/dL (3.0-4.8); ALT/SGPT 49 U/L (7-56); AST/SGOT 40 U/L (15-39); BLOOD UREA NITROGEN 10 mg/dL (7-21); CALCIUM 8.6 mg/dL (8.4-10.5); GFR AFRICAN-AMERICAN > 60; GFR NON-AFRICAN AMERICAN > 60; HDL CHOLESTEROL 38 mg/dL (29-60); MAGNESIUM 1.7 mg/dL (1.7-2.2)
[2016-09-27 08:02] LABS: TROPONIN I < 0.01 ng/mL
[2016-09-27 08:05] LABS: LDL CHOLESTEROL 138 mg/dL (0-129)
[2016-09-27 08:08] LABS: FREE T4 1.32 ng/dL (0.78-2.19)
--- NOTE | 2016-09-27 09:52 | CARD ---
APPROVED REPORT EKG Measurement Heart [id number] <Conclusion> RSR with frequent APC's NSSTW changes Q in 3
--- NOTE | 2016-09-27 10:02 | CARD ---
APPROVED REPORT EKG Measurement Heart [id number] <Conclusion> Normal sinus rhythm Normal ECG APCs no longer present c/w earlier ECG
[2016-09-27] MEDS ORDERED: Lidocaine 2% Inj (20ml) ONE (12:11)
[2016-09-27] MEDS ORDERED: Nitroglycerin 50mg in D5W 50 MG/250 ML BOTTLE IV ONE (12:13)
[2016-09-27] MEDS ORDERED: Iohexol 350 MG/100 ML VIAL ONE (12:14)
[2016-09-27] MEDS ORDERED: Iohexol 350mgl/ml 50 ML ONE (12:14)
[2016-09-27] MEDS ORDERED: Midazolam 2 MG/2 ML VIAL ONE (12:21)
[2016-09-27 12:40] VITALS: TEMP 98.2
[2016-09-27] MEDS ORDERED: Bacitracin 500 Units/gm Oint Foilpak UD TOP ONE (13:25)
[2016-09-27] MEDS ORDERED: Sodium Chloride 0.9% 1,000 ML IV SCH (13:30)
--- NOTE | 2016-09-27 13:35 | CP.PCM.DIS ---
<Stormy Smith - Last Filed: 09/27/16 17:34> Provider - Provider Date of Admission: 09/26/16 11:23 Attending physician: Nani Jones MD Primary care physician: Julia Ortega MD Consults: Cardiology: Laura Time Spent in preparation of Discharge (in minutes): 35 Diagnosis - Discharge Diagnosis (1) New onset atrial fibrillation Status: Acute Hospital Course - Lab Results Lab Results: Most Recent Lab Values WBC 5.9 10^3/ul (4.5-11.0) D 09/27/16 06:30 RBC 4.55 10^6/uL (3.5-6.1) 09/27/16 06:30 Hgb 12.4 gm/dL (12.0-16.0) 09/27/16 06:30 Hct 38.2 % (36.0-48.0) 09/27/16 06:30 MCV 84.0 fL (80.0-105.0) 09/27/16 06:30 MCH 27.3 pg (25.0-35.0) 09/27/16 06:30 MCHC 32.5 g/dl (31.0-37.0) 09/27/16 06:30 RDW 14.3 % (11.5-14.5) 09/27/16 06:30 Plt Count 206 10^3/uL (120.0-450.0) 09/27/16 06:30 MPV 11.0 fl (7.0-11.0) 09/27/16 06:30 Gran % 50.4 % (50.0-68.0) 09/27/16 06:30 Lymph % (Auto) 38.0 % (22.0-35.0) H 09/27/16 06:30 [place] % (Auto) 8.9 % (1.0-6.0) H 09/27/16 06:30 Eos % (Auto) 2.4 % (1.5-5.0) 09/27/16 06:30 Baso % (Auto) 0.3 % (0.0-3.0) 09/27/16 06:30 Gran # 2.99 (1.4-6.5) 09/27/16 06:30 Lymph # 2.3 (1.2-3.4) 09/27/16 06:30 [place] # 0.5 (0.1-0.6) 09/27/16 06:30 Eos # 0.1 (0.0-0.7) 09/27/16 06:30 Baso # 0.02 K/mm3 (0.0-2.0) 09/27/16 06:30 D-Dimer, Quantitative 0.47 mg/L FEU (0-0.50) 09/26/16 09:58 Sodium 141 mmol/L (132-148) 09/27/16 06:30 Potassium 3.6 mmol/L (3.6-5.0) 09/27/16 06:30 Chloride 104 mmol/L (98-107) 09/27/16 06:30 Carbon Dioxide 27 mmol/L (21-33) 09/27/16 06:30 Anion Gap 14 (10-20) 09/27/16 06:30 BUN 10 mg/dL (7-21) 09/27/16 06:30 Creatinine 0.5 mg/dL (0.5-1.4) 09/27/16 06:30 Est GFR ( Amer) > 60 09/27/16 06:30 Est GFR (Non-Af Amer) > 60 09/27/16 06:30 POC Glucose (mg/dL) 171 mg/dL (65-110) H 09/27/16 07:40 Random Glucose 141 mg/dL (70-110) H 09/27/16 06:30 Hemoglobin A1c 7.8 % (4.2-6.5) H 09/27/16 06:30 Calcium 8.6 mg/dL (8.4-10.5) 09/27/16 06:30 Phosphorus 4.2 mg/dL (2.5-4.5) 09/27/16 06:30 Magnesium 1.7 mg/dL (1.7-2.2) 09/27/16 06:30 Total Bilirubin 0.6 mg/dL (0.2-1.3) 09/27/16 06:30 AST 40 U/L (15-39) H 09/27/16 06:30 ALT 49 U/L (7-56) 09/27/16 06:30 Alkaline Phosphatase 56 U/L (38-133) 09/27/16 06:30 Lactate Dehydrogenase 461 U/L (333-699) 09/26/16 09:58 Total Creatine Kinase 86 U/L (35-230) 09/26/16 09:58 Troponin I < 0.01 ng/mL 09/27/16 06:30 NT-Pro-B Natriuret Pep 172 pg/mL (0-450) 09/26/16 09:58 Total Protein 7.1 g/dL (5.8-8.3) 09/27/16 06:30 Albumin 3.7 g/dL (3.0-4.8) 09/27/16 06:30 Globulin 3.4 gm/dL 09/27/16 06:30 Albumin/Globulin Ratio 1.1 (1.1-1.8) 09/27/16 06:30 Triglycerides 128 mg/dL (35-160) 09/27/16 06:30 Cholesterol 193 mg/dL (130-200) 09/27/16 06:30 LDL Cholesterol Direct 138 mg/dL (0-129) H 09/27/16 06:30 HDL Cholesterol 38 mg/dL (29-60) 09/27/16 06:30 Free T4 1.32 ng/dL (0.78-2.19) 09/27/16 06:30 TSH 3rd Generation 1.68 mIU/mL (0.46-4.68) 09/27/16 06:30 Urine Color Straw (YELLOW) 09/26/16 10:09 Urine Appearance Clear (CLEAR) 09/26/16 10:09 Urine pH 6.5 (4.7-8.0) 09/26/16 10:09 Ur Specific [place] <= 1.005 (1.005-1.035) 09/26/16 10:09 Urine Protein Negative mg/dL (<30 mg/dL) 09/26/16 10:09 Urine Glucose (UA) Negative mg/dL (NEGATIVE) 09/26/16 10:09 Urine Ketones Negative mg/dL (NEGATIVE) 09/26/16 10:09 Urine Blood Negative (NEGATIVE) 09/26/16 10:09 Urine Nitrate Negative (NEGATIVE) 09/26/16 10:09 Urine Bilirubin Negative (NEGATIVE) 09/26/16 10:09 Urine Urobilinogen 0.2 E.U./dL (<1 E.U./dL) 09/26/16 10:09 Ur Leukocyte Esterase Negative Leonard/uL (NEGATIVE) 09/26/16 10:09 - Hospital Course Hospital Course: 66 yo female with pmhx of Diabetes, HTN, GERD presents to the ED s/p fall. Patient reports that she was sleeping in the bed when she rolled over and hit her head on the night stand. Denies any LOC. Had a similar episode happen last year but did not hit her head. Patient reports that an hour after the fall she began to have substernal pressure-like chest pain. Pain radiated to the back and was associated with palpitations. Worse with breathing. At this time patient denies pain but reports that the chest pressure is intermittent and is less severe currently. Patient sees Dr Sanchez as an outpatient. Stress test done in July was normal. In the ED, EKG was interpreted as afib with HR 118. Patient recieved 1 dose of weight based Lovenox. Patient was admitted for new onset afib. Patient was admitted and monitored on telemetry. Patient was given 1 dose of Cardizem 5mg IV. CT head was negative. For DM, patient was started on ISS and Glipizide, metformin was held. For HTN, patient was started on Lisinopril and Atenolol was continued. Cardiology was consulted and on the case. Per cardio documentation, EKG interpretation on admission was sinus tachycardia with frequent atrial ectopy. Atenolol was increased to 50mg daily. Per cardio, no half-way anticoagulation needed at this time. Troponins were negative x 3. D-Dimer was negative. Thyroid function was wnl. LDL cholesterol was elevated. Patient was taken for cardiac cath on 09/27 , recieved high dose Plavix and ASA prior to procedure. Cardiac cath showed mild CAD. Patient tolerated the procedure well and was monitored post procedure. Patient is currently asymptomatic and tolerating diet. Medically stable for discharge. Patient to follow up with PMD and Cardiology within 1 week. Patient can resume Metformin in 48 hours. Prescriptions given for Atenolol 50mg daily and Lipitor 40mg daily. All questions and concerns were addressed. Discharge Exam - Head Exam Head Exam: ATRAUMATIC, NORMAL INSPECTION - Eye Exam Eye Exam: EOMI, Normal appearance Pupil Exam: NORMAL ACCOMODATION - ENT Exam ENT Exam: Mucous Membranes Moist - Respiratory Exam Respiratory Exam: Clear to PA & Lateral, NORMAL BREATHING PATTERN. absent: Rales, Rhonchi, Wheezes - Cardiovascular Exam Cardiovascular Exam: REGULAR RHYTHM, +S1, +S2 - GI/Abdominal Exam GI & Abdominal Exam: Normal Bowel Sounds, Soft. absent: Guarding, Rebound, Rigid - Extremities Exam Extremities exam: normal inspection, pedal pulses present - Back Exam Back exam: tenderness - Neurological Exam Neurological exam: Alert, Oriented x3 - Psychiatric Exam Psychiatric exam: Normal Affect, Normal Mood - Skin Skin Exam: Normal Color, Warm Discharge Plan - Discharge Medications Prescriptions: Atenolol 50 mg PO DAILY #30 tablet Atorvastatin [Lipitor] 40 mg PO DAILY #30 tab - Follow Up Plan Condition: STABLE Disposition: HOME/ ROUTINE Instructions: Atrial Fibrillation (DC), Left Heart Catheterization (DC), Heart Healthy Diet (DC), Meal Planning with Diabetes Exchanges (DC) Additional Instructions: Patient is clear for d/c home. Patient given prescriptions for Atenolol 50mg daily, Lipitor 40mg daily. Patient to resume Metformin in 48 hours. Patient also to follow up with PMD and Cardiology within 1 week. Referrals: Julia Ortega MD [Primary Care Provider] - <Nani Jones - Last Filed: 09/28/16 07:04> Provider - Provider Date of Admission: 09/26/16 11:23 Attending physician: Nani Jones MD Primary care physician: Julia Ortega MD Hospital Course - Lab Results Lab Results: Most Recent Lab Values WBC 5.9 10^3/ul (4.5-11.0) D 09/27/16 06:30 RBC 4.55 10^6/uL (3.5-6.1) 09/27/16 06:30 Hgb 12.4 gm/dL (12.0-16.0) 09/27/16 06:30 Hct 38.2 % (36.0-48.0) 09/27/16 06:30 MCV 84.0 fL (80.0-105.0) 09/27/16 06:30 MCH 27.3 pg (25.0-35.0) 09/27/16 06:30 MCHC 32.5 g/dl (31.0-37.0) 09/27/16 06:30 RDW 14.3 % (11.5-14.5) 09/27/16 06:30 Plt Count 206 10^3/uL (120.0-450.0) 09/27/16 06:30 MPV 11.0 fl (7.0-11.0) 09/27/16 06:30 Gran % 50.4 % (50.0-68.0) 09/27/16 06:30 Lymph % (Auto) 38.0 % (22.0-35.0) H 09/27/16 06:30 [place] % (Auto) 8.9 % (1.0-6.0) H 09/27/16 06:30 Eos % (Auto) 2.4 % (1.5-5.0) 09/27/16 06:30 Baso % (Auto) 0.3 % (0.0-3.0) 09/27/16 06:30 Gran # 2.99 (1.4-6.5) 09/27/16 06:30 Lymph # 2.3 (1.2-3.4) 09/27/16 06:30 [place] # 0.5 (0.1-0.6) 09/27/16 06:30 Eos # 0.1 (0.0-0.7) 09/27/16 06:30 Baso # 0.02 K/mm3 (0.0-2.0) 09/27/16 06:30 D-Dimer, Quantitative 0.47 mg/L FEU (0-0.50) 09/26/16 09:58 Sodium 141 mmol/L (132-148) 09/27/16 06:30 Potassium 3.6 mmol/L (3.6-5.0) 09/27/16 06:30 Chloride 104 mmol/L (98-107) 09/27/16 06:30 Carbon Dioxide 27 mmol/L (21-33) 09/27/16 06:30 Anion Gap 14 (10-20) 09/27/16 06:30 BUN 10 mg/dL (7-21) 09/27/16 06:30 Creatinine 0.5 mg/dL (0.5-1.4) 09/27/16 06:30 Est GFR ( Amer) > 60 09/27/16 06:30 Est GFR (Non-Af Amer) > 60 09/27/16 06:30 POC Glucose (mg/dL) 218 mg/dL (65-110) H 09/27/16 16:44 Random Glucose 141 mg/dL (70-110) H 09/27/16 06:30 Hemoglobin A1c 7.8 % (4.2-6.5) H 09/27/16 06:30 Calcium 8.6 mg/dL (8.4-10.5) 09/27/16 06:30 Phosphorus 4.2 mg/dL (2.5-4.5) 09/27/16 06:30 Magnesium 1.7 mg/dL (1.7-2.2) 09/27/16 06:30 Total Bilirubin 0.6 mg/dL (0.2-1.3) 09/27/16 06:30 AST 40 U/L (15-39) H 09/27/16 06:30 ALT 49 U/L (7-56) 09/27/16 06:30 Alkaline Phosphatase 56 U/L (38-133) 09/27/16 06:30 Lactate Dehydrogenase 461 U/L (333-699) 09/26/16 09:58 Total Creatine Kinase 86 U/L (35-230) 09/26/16 09:58 Troponin I < 0.01 ng/mL 09/27/16 06:30 NT-Pro-B Natriuret Pep 172 pg/mL (0-450) 09/26/16 09:58 Total Protein 7.1 g/dL (5.8-8.3) 09/27/16 06:30 Albumin 3.7 g/dL (3.0-4.8) 09/27/16 06:30 Globulin 3.4 gm/dL 09/27/16 06:30 Albumin/Globulin Ratio 1.1 (1.1-1.8) 09/27/16 06:30 Triglycerides 128 mg/dL (35-160) 09/27/16 06:30 Cholesterol 193 mg/dL (130-200) 09/27/16 06:30 LDL Cholesterol Direct 138 mg/dL (0-129) H 09/27/16 06:30 HDL Cholesterol 38 mg/dL (29-60) 09/27/16 06:30 Free T4 1.32 ng/dL (0.78-2.19) 09/27/16 06:30 TSH 3rd Generation 1.68 mIU/mL (0.46-4.68) 09/27/16 06:30 Urine Color Straw (YELLOW) 09/26/16 10:09 Urine Appearance Clear (CLEAR) 09/26/16 10:09 Urine pH 6.5 (4.7-8.0) 09/26/16 10:09 Ur Specific [place] <= 1.005 (1.005-1.035) 09/26/16 10:09 Urine Protein Negative mg/dL (<30 mg/dL) 09/26/16 10:09 Urine Glucose (UA) Negative mg/dL (NEGATIVE) 09/26/16 10:09 Urine Ketones Negative mg/dL (NEGATIVE) 09/26/16 10:09 Urine Blood Negative (NEGATIVE) 09/26/16 10:09 Urine Nitrate Negative (NEGATIVE) 09/26/16 10:09 Urine Bilirubin Negative (NEGATIVE) 09/26/16 10:09 Urine Urobilinogen 0.2 E.U./dL (<1 E.U./dL) 09/26/16 10:09 Ur Leukocyte Esterase Negative Leonard/uL (NEGATIVE) 09/26/16 10:09 Attending/Attestation - Attestation I have personally seen and examined this patient.: Yes I have fully participated in the care of the patient.: Yes I have reviewed all pertinent clinical information, including history, physical exam and plan: Yes Notes (Text): 09/27/16 66 year old female with past medical history of diabetes and hypertension who presented after she rolled off the bed while sleeping. CT head was negative for acute findings. She was found to have ?afib on EKG which was in fact NSR with APCs as per cardiology. Her atenolol was increased. She complained of chest pain and serial cardiac enzymes were negative. Due to her risk factors ( hypertension, diabetes and family history of heart disease) she was taken for cardiac cath which showed nonobstructive CAD. She is cleared for discharge by cardiology. Continue with atenolol and statin. Follow up with pmd and cardiology. Nani Jones MD Hospitalist.
--- NOTE | 2016-09-27 14:43 | PN ---
DATE: 09/27/2016 REASON FOR CONSULTATION: Followup AFib and chest pain. SUBJECTIVE: The patient complaining of heaviness in chest lasted for 2-1/2 hours radiating to the back, now feels a little better. PHYSICAL EXAMINATION: GENERAL: Lying in mild discomfort. VITAL SIGNS: Height of the patient is 5 feet, weight of the patient 233 pounds, and body mass index of 45.5 kg/m2. Temperature is afebrile, heart rate , and blood pressure 131/73. HEENT: PERRLA. Extraocular muscles are intact. NECK: Supple. No carotid bruits or thyromegaly. HEART: S1 and S2, regular. CHEST: Clear to auscultation. ABDOMEN: Soft. EXTREMITIES: Clubbing and cyanosis negative. LABORATORY DATA: Blood workup as follows: WBC 5.9, hemoglobin 12.4, hematocrit 38.2, and platelet count 206. Chemistry shows sodium 141, potassium 3.6, chloride 104, carbon dioxide 27, anion gap of 14, BUN 10, creatinine 0.5, and troponin is 0.01 x3 negative. IMPRESSION AND PLAN: Chest pain, unstable angina, paroxysmal atrial fibrillation converted to normal sinus. A 66-year-old female with past medical history significant for diabetes for 10 years admitted with paroxysmal atrial fibrillation. The patient is feeling pressure in chest, went to his brother who is a physician, and has irregular heartbeat here. The patient was found to be in atrial fibrillation. The patient later converted to normal sinus, but complaining of chest pain for 2-1/2 hours, so far the troponin is negative. History of stress Lexiscan on 08/27/2016 was negative given the multiple coronary artery disease and unstable angina, although stress test is negative, suggest cardiac catheterization. The patient is agreeable to proceed for cardiac catheterization and in the interim continue atenolol was started and continue aspirin. The patient got last night dose of Lovenox, continue lisinopril and load with the Plavix, further recommendation after the cardiac catheterization discussed with the family, sisters, and the patient's son is coming. We will discuss if the patient agrees, we will proceed for cardiac catheterization and further recommendation of the cardiac catheterization. We will follow with you. We will keep n.p.o. for cardiac cath. Thank you Dr. Julia Ortega for providing me the opportunity in taking care of the patient, Prakash Macdonald. Emanuel Matson MD
[2016-09-27 15:02] VITALS: RESP 18
--- NOTE | 2016-09-27 18:04 | CARD ---
APPROVED REPORT Procedure(s) performed: Left Heart Catheterization HISTORY The patient is a 66 year-old female with a history of : most recent EF: 82%. (EF Method: RADIONUCLIDE), diabetes mellitus with insulin treatment , previous diagnostic cath, hypertension , Admitted with ACS, has had stress test Lexiscan 0n 08/23/2016, which was negative.Chest pain for two and half hours with radiation to back and left arm prior to admission. Admitting diagnosis was chest painand A Fib ( which was in fact Runs of APCs wit NSR).. INDICATION The indication(s) include : unstable angina , arrhythmia, atrial fibrillation, dyspnea. CASE TECHNIQUE The patient was brought urgently to the Cardiac Catheterization Laboratory in a fasting state and was prepped and draped in a sterile manner. The left wrist was infiltrated with 2% Lidocaine subcutaneous anesthesia. A 6 Fr Glidesheath (Radial) sheath was inserted into the left radial artery without difficulty. Coronary angiography was performed using coronary diagnostic catheters. The left coronary system was accessed and visualized with a Diagnostic ,6 Fr JL 3.5 catheter. The right coronary system was accessed and visualized with a Diagnostic ,5 Fr JR 4 catheter. The left ventricle was accessed and visualized with a 5 Fr Pigtail 145 (Angled) catheter. Left ventricular/Aortic Valve gradient assessed on pullback. Left ventriculogram was performed in CALLES projection. The patient tolerated the procedure well and there were no complications associated with the procedure. Vessel Analysis The patient's coronary anatomy is left dominant. The left main coronary artery is a large size vessel with intimal irregularities. The left main bifurcates to the left anterior descending and circumflex. The left anterior descending artery is a medium size vessel with diffuse calcification noted throughout this vessel and without significant stenosis. There is a 55% stenosis in the very distal segment near apex.. diffusely diseased, but no focal flow limiting stenosis The first diagonal branch is a small size vessel with diffuse calcification noted throughout this vessel and without significant stenosis. The second diagonal branch is a small size vessel with diffuse calcification noted throughout this vessel and without significant stenosis. The circumflex artery is a large size vessel with intimal irregularities and without significant stenosis. The first obtuse marginal branch is a large size vessel with intimal irregularities and without significant stenosis. The second obtuse marginal branch is a small size vessel with diffuse calcification noted throughout this vessel and without significant stenosis. The left posterior descending artery is a medium size vessel with diffuse calcification noted throughout this vessel and without significant stenosis. The right coronary artery is a small size vessel with diffuse calcification noted throughout this vessel and without significant stenosis. Left Ventricle The left ventricle is normal in size with Hyperdynamic contractility. There was no cardiomyopathy. The left ventricular ejection fraction is estimated to be 65%. The left ventricular end diastolic pressure is 20 mmHg. There was no gradient across the aortic valve upon pullback. Conclusion Non Obstructive CAD ,limited to Very distal LAD 55% near apex, diffusely diseased, non focal, non flow limiting. Hyperdynamic Ventricle. EF-65%, EDP-20 mmof Hg with marked respiratory variation. Sleep pattern C/W BHAVANA Recommendations Aggressive Medical TherapyCardiac Risk Reduction Program Weight Loss Reduction Program Add beta levi, atenolol 50 mg po daily and statin in current regimen ( pt was admitted with diagosis A Fib, In fact it was run of APCs with NSR, so no anticoagulation was prescribed for home. This was expalined to pt.'s brother who is physician). Consider Sleep study to R/o BHAVANA CC: Drs. Ortega/ Laura
[2016-09-27 19:52] VITALS: BP 135/66; PULSE 66
== END 2016-09-27 19:30 | disposition home or self-care (01) | DRG 124 ==
LOC: ED 08:55 → ERH 11:23 → 2RNO 12:09 → 2RSO 09-27 13:36
PROVIDERS: ADMIT Internal Medicine; ATTEND Internal Medicine
PROC: 4A023N7 Measurement of Cardiac Sampling and Pressure, Left Heart, Percutaneous Approach (ICD-10-PCS; principal; 2016-09-27)
PROC: B2111ZZ Fluoroscopy of Multiple Coronary Arteries using Low Osmolar Contrast (ICD-10-PCS; 2016-09-27)
PROC: B2151ZZ Fluoroscopy of Left Heart using Low Osmolar Contrast (ICD-10-PCS; 2016-09-27)
DX: I48.0 Paroxysmal atrial fibrillation (principal); E11.42 Type 2 diabetes mellitus with diabetic polyneuropathy; E11.65 Type 2 diabetes mellitus with hyperglycemia; W06.XXXA Fall from bed, initial encounter; I25.110 Atherosclerotic heart disease of native coronary artery with unstable angina pectoris; G47.33 Obstructive sleep apnea (adult) (pediatric); I10 Essential (primary) hypertension; J45.909 Unspecified asthma, uncomplicated; K21.9 Gastro-esophageal reflux disease without esophagitis; Z79.899 Other long term (current) drug therapy; Z82.49 Family history of ischemic heart disease and other diseases of the circulatory system; Z90.49 Acquired absence of other specified parts of digestive tract; F32.89 Other specified depressive episodes; R51 Headache; R40.2412 Glasgow coma scale score 13-15, at arrival to emergency department; S00.12XA Contusion of left eyelid and periocular area, initial encounter; Z79.82 Long term (current) use of aspirin; R00.0 Tachycardia, unspecified